=== PATIENT | female | born 1935 | race Caucasian/White ===

== ENCOUNTER → 2019-09-12 18:35 | Outpatient (CLI) | payer MEDICARE, MEDICAID, SELFPAY | PROVIDERS: Visit Provider Internal Medicine Adolescent Medicine | DX: Z20.828 Contact with and (suspected) exposure to other viral communicable diseases (principal) | CPT/HCPCS: 87275; 87276 ==

== ENCOUNTER → 2020-10-19 12:03 | Outpatient (CLI) | payer MEDICARE, MEDICAID, SELFPAY ==
[2020-10-19 13:50] LABS: Basophils % 0.2 % (0.1-2.0); Eosinophils # 0.2 K/mm3 (0.0-0.4); Eosinophils % 1.4 % (0.1-12.0); Hematocrit 28.6 % (37.0-47.0); Hemoglobin 9.4 g/dL (12.2-16.2); Lymphocytes # 0.8 K/mm3 (0.7-4.5); Lymphocytes % 5.3 % (10-50); Mean Corpuscular HGB Conc 32.9 g/dL (31.8-35.4); Mean Corpuscular Hemoglobin 28.9 pg (27.0-31.2); Mean Corpuscular Volume 87.8 fl (81-99); Mean Platelet Volume 8.9 fl (7.4-10.4); Monocytes # 0.6 K/mm3 (0.1-1.0); Monocytes % 4.4 % (1.7-9.3); Neutrophils # 12.6 K/mm3 (1.8-7.8); Neutrophils % 88.7 % (37.0-80.0); Platelet Count 242 K/mm3 (142-424); Red Blood Count 3.26 M/mm3 (4.20-5.40); Red Cell Distribution Width 15.9 % (11.5-17.5); White Blood Count 14.2 K/mm3 (4.8-10.8)
[2020-10-19 13:53] LABS: MANUAL DIFFERENTIAL MANUAL DIFFERENTIAL (MANUAL DIFF)
[2020-10-19 14:14] LABS: Lymphocytes % 6 % (10-50); Monocytes % 4 % (2-9); Neutrophils % 90 % (42-76); Platelet Estimate Normal; RBC Morphology Normal; Total Cells Counted 100
== END ==
PROVIDERS: Visit Provider Nurse Practitioner Family
DX: R06.02 Shortness of breath (principal); R05 Cough
CPT/HCPCS: 85007; 85025

== ENCOUNTER 2020-10-28 02:19 | Observation (INO) | payer MEDICARE, MEDICAID, SELFPAY ==
[2020-10-28] VITALS (14 sets, daily range): BP systolic 107–142; BP diastolic 50–87; PULSE 62–110; RESP 16–22; TEMP 36.4–36.9; O2SAT 84–100; BMI 24.7; BMI 23.3; BMI 20.5
[2020-10-28 02:28] LABS: ABG Base Excess 0.2 mmol/L (-2.4-2.3); ABG HCO3 24.7 mmhg (22.0-26.0); ABG Oxygen Saturation 96 % (90-100); ABG PCO2 39.2 mmhg (35.0-45.0); ABG PH 7.42 mmol/L (7.35-7.45); ABG TCO2 25.9 mmhg (23-27)
--- NOTE | 2020-10-28 02:30 | ECG_ITS ---
APPROVED REPORT Exam: Resting ECG HR:99 bpm ECG Measurements Heart Rate 99 AXES TN 160 P 42 QRSd 108 QRS 144 QT 402 T 24 QTc 515 Conclusion Sinus rhythm with occasional premature ventricular complexes Right bundle branch block ST elevation, consider inferior injury or acute infarct ACUTE MS Consider right ventricular involvement in acute inferior infarct Abnormal ECG Electronically signed by : Chilango Crews, 10/29/2020 17:36:26
[2020-10-28 02:32] LABS: Allen's Test Acceptable; Oxygen 2L %; Source Right Radial
--- NOTE | 2020-10-28 02:32 | CT_ITS ---
PROCEDURE: CT ANGIO CHEST CLINCIAL INDICATION: SOA Shortness of breath, respiratory distress COMPARISON: No exams were available for comparison TECHNIQUE: IV Contrast: 70ML Isovue 370 Axial images obtained with sagittal and coronal reformats. All CT scans at the facility use one or more dose reduction, viz: automated exposure control, ma/kV adjustment per patient size (including targeted exams where dose is matched to indication, i.e. head), or iterative reconstruction technique. FINDINGS: HEART AND MEDIASTINAL STRUCTURES: No evidence of aortic aneurysm or dissection. Aortic valve calcifications are. Mitral valve annular calcifications are also noted. No obvious pulmonary embolus. LUNGS AND PLEURAL SPACES: There is mild diffuse ground-glass attenuation in the upper lobes. Motion artifact obscures fine detail. Interstitial edema. Small bilateral pleural effusions right greater than left with basilar atelectasis BONY STRUCTURES: Degenerative changes of the spine UPPER ABDOMEN: Moderate amount of colonic feces ADDITIONAL FINDINGS: No other significant abnormalities. IMPRESSION: 1. No definite pulmonary embolus. No evidence of aortic aneurysm. 2. Pulmonary edema with bilateral pleural effusions and cardiomegaly consistent with CHF. Bibasilar atelectasis is noted Dictated by: Christian Heard MD 10/28/2020 07:39 Christian Heard MD in [facility] 10/28/2020 07:39
--- NOTE | 2020-10-28 02:32 | XR_ITS ---
PROCEDURE: XR CHEST AP CLINICAL HISTORY: SOA COMPARISON: No exams were available for comparison FINDINGS: Cardiomegaly with pulmonary venous congestion. Faint opacification in the right upper and right lower lobe which may be due to edema or pneumonia. Small bilateral pleural effusions are present better demonstrated on the CT scan. Left hemidiaphragm is elevated. IMPRESSION: CHF with patchy airspace disease in the right upper and right lower lobe which may be due to pulmonary edema or pneumonia with small bilateral effusions Dictated by: Christian Heard MD 10/28/2020 07:40 Christian Heard MD in [facility] 10/28/2020 07:40
[2020-10-28 02:43] LABS: Basophils # 0.1 K/mm3 (0-0.2); Basophils % 0.3 % (0.1-2.0); Eosinophils # 0.4 K/mm3 (0.0-0.4); Eosinophils % 2.8 % (0.1-12.0); Hematocrit 34.5 % (37.0-47.0); Hemoglobin 10.4 g/dL (12.2-16.2); Lymphocytes # 1.9 K/mm3 (0.7-4.5); Lymphocytes % 12.3 % (10-50); Mean Corpuscular HGB Conc 30.1 g/dL (31.8-35.4); Mean Corpuscular Hemoglobin 27.6 pg (27.0-31.2); Mean Corpuscular Volume 91.8 fl (81-99); Mean Platelet Volume 8.2 fl (7.4-10.4); Monocytes # 0.5 K/mm3 (0.1-1.0); Monocytes % 2.9 % (1.7-9.3); Neutrophils # 12.4 K/mm3 (1.8-7.8); Neutrophils % 81.7 % (37.0-80.0); Platelet Count 426 K/mm3 (142-424); Red Blood Count 3.76 M/mm3 (4.20-5.40); White Blood Count 15.2 K/mm3 (4.8-10.8)
[2020-10-28 02:45] LABS: Alanine Aminotransferase 13 U/L (12-78); Albumin Level 3.6 g/dl (3.5-5.0); Alkaline Phosphatase 71 U/L (38-126); Anion Gap 12.2 mEq/L (5-15); Aspartate Amino Transferase 25 U/L (14-36); Bilirubin,Total 0.2 mg/dl (0.2-1.3); Blood Urea Nitrogen 24 mg/dl (7-17); Calcium 9.4 mg/dl (8.4-10.2); Carbon Dioxide 27 mmol/L (22.0-30.0); Chloride 109 mmol/L (98-107); Creatinine Clearance Estimated 41 mL/min (50-200); Estimated Glomerular Filt Rate 68 ml/min (>60); GFR (African American) 82 ML/MIN (>60); Globulin 3.6 g/dL (1.3-3.2); Glucose 146 mg/dl (74-100); Potassium 3.2 mmoL/L (3.5-5.1); Sodium 145 mmol/L (136-145); Total Protein,Serum 7.2 g/dl (6.3-8.2)
[2020-10-28 02:49] LABS: MANUAL DIFFERENTIAL MANUAL DIFFERENTIAL (MANUAL DIFF)
[2020-10-28 02:50] LABS: C-Reactive Protein 22.2 mg/L (0-4)
[2020-10-28 02:53] LABS: NT Pro Brain Natriuretic Pep. 4000 pg/mL (0-450)
[2020-10-28 02:59] LABS: Troponin I 0.03 ng/ml (0.00-0.034)
[2020-10-28 03:03] LABS: Adenovirus,PCR Not Detected (NotDetected); Bordetella Pertussis Not Detected (NotDetected); Chlamydophila Pneumoniae, PCR Not Detected (NotDetected); Coronavirus 19, PCR Not Detected (NotDetected); Coronavirus 229E Not Detected (NotDetected); Coronavirus NL63 Not Detected (NotDetected); Coronavirus OC43 Not Detected (NotDetected); Coronovirus HKU1,PCR Not Detected (NotDetected); Human Metapneumovirus Not Detected (NotDetected); Influenza A, PCR Not Detected (NotDetected); Influenza AH1, 2009 Not Detected (NotDetected); Influenza AH1, PCR Not Detected (NotDetected); Influenza AH3,PCR Not Detected (NotDetected); Influenza B, PCR Not Detected (NotDetected); Mycoplasma Pneumoniae, PCR Not Detected (NotDetected); Parainfluenza 1, PCR Not Detected (NotDetected); Parainfluenza 2, PCR Not Detected (NotDetected); Parainfluenza 3, PCR Not Detected (NotDetected); Parainfluenza 4, PCR Not Detected (NotDetected); Respiratory Syncytial Virus Not Detected (NotDetected); Rhinovirus/Enterovirus Not Detected (NotDetected)
[2020-10-28 03:04] LABS: Procalcitonin 0.075 ng/mL (0.0-2.0)
[2020-10-28 03:17] LABS: Microscopic, Urine URINE MICROSCOPIC (MICROSCOPIC)
[2020-10-28 03:20] LABS: Appearance,Urine CLEAR (Clear); Bilirubin,Urine Negative (Negative); Blood, Urine Negative (Negative); Color,Urine YELLOW (Yellow); Glucose,Urine (UA) Negative (Negative); Ketones,Urine Negative (Negative); Leukocyte Esterase,Urine Negative (Negative); Nitrate,Urine Negative (Negative); Protein,Urine TRACE (Negative); Specific Gravity, Urine 1.025 (1.005-1.030)
[2020-10-28 03:25] LABS: Lactic Acid 1.4 mmol/L (0.7-2.1)
[2020-10-28 03:28] LABS: Bacteria,Urine 1+ /lpf; Calcium Oxalate Crystals,Urine 1+ /lpf
[2020-10-28 03:50] LABS: Eosinophils % 1 % (0-3); Lymphocytes % 25 % (10-50); Monocytes % 1 % (2-9); Neutrophils % 73 % (42-76); Platelet Estimate Normal; Stomatocytes 1+; Total Cells Counted 100
[2020-10-28 03:51] LABS: Erythrocyte Sedimentation Rate > 140 mm/hr (0-30)
--- NOTE | 2020-10-28 04:10 | PC.NURSE ---
Dr. Theodore on phone with MIROSLAVAAD
--- NOTE | 2020-10-28 04:11 | PC.NURSE ---
Dr Theodore speaking with [facility] regarding Chest CT
--- NOTE | 2020-10-28 04:15 | HMH.EDSOB ---
ED Disposition Clinical Impression: RBBB (right bundle branch block with left anterior fascicular block), Hypothyroidism (acquired) Congestive heart failure Qualifiers: Heart failure type: unspecified Heart failure chronicity: acute on chronic Qualified Code(s): I50.9 - Heart failure, unspecified Pulmonary embolism Qualifiers: Pulmonary embolism type: unspecified Chronicity: acute Acute cor pulmonale presence: without acute cor pulmonale Qualified Code(s): I26.99 - Other pulmonary embolism without acute cor pulmonale Anemia Qualifiers: Anemia type: unspecified type Qualified Code(s): D64.9 - Anemia, unspecified Disposition: Admitted As Inpatient Condition on Discharge: Serious Referrals: Chilango Crews MD [Primary Care Provider] - - Critical Care Critical Care Time: No Attestation: On , the high probability of a clinically significant, sudden or life threatening deterioration of the following system(s) required my full and direct attention, intervention and personal management. The time I documented below is in addition to time spent performing reported procedures but includes the following listed in this critical care notation. Medical Decision Making - Medical Records Medical records reviewed: Yes: I reviewed the patient's medical records. - Junior Inquiry Pt receiving controlled substance: No Vital Signs: 10/28/20 02:19 10/28/20 02:20 10/28/20 02:37 Temperature 98.4 F Temperature Source Oral Pulse Rate 110 H Pulse Rate [Right] 102 H Respiratory Rate 21 20 Blood Pressure 107/66 L Blood Pressure [Right Arm] 142/87 H Blood Pressure Mean 81 Blood Pressure Mean [Right Arm] 105 Blood Pressure Source [Right Arm] Automatic Cuff 02 Sat by Pulse Oximetry 84 L 94 L 98 Oxygen Delivery Method Room Air Nasal Cannula Nasal Cannula Oxygen Flow Rate (LPM) 2 2 10/28/20 03:01 10/28/20 04:02 Temperature Temperature Source Pulse Rate 102 H 102 H Pulse Rate [Right] Respiratory Rate 18 22 Blood Pressure 126/80 129/85 Blood Pressure [Right Arm] Blood Pressure Mean 90 99 Blood Pressure Mean [Right Arm] Blood Pressure Source [Right Arm] 02 Sat by Pulse Oximetry 100 100 Oxygen Delivery Method Nasal Cannula Nasal Cannula Oxygen Flow Rate (LPM) 2 2 - Lab Data Lab results reviewed: Yes: I reviewed the patient's lab results. Lab Results 10/28/20 02:15: WBC 15.2 H, RBC 3.76 L, Hgb 10.4 L, Hct 34.5 L, MCV 91.8, MCH 27.6, MCHC 30.1 L, RDW 16.0, Plt Count 426 H, MPV 8.2, Neut % (Auto) 81.7 H, Lymph % (Auto) 12.3, [place] % (Auto) 2.9, Eos % (Auto) 2.8, Baso % (Auto) 0.3, Neut # (Auto) 12.4 H, Lymph # (Auto) 1.9, [place] # (Auto) 0.5, Eos # (Auto) 0.4, Baso # (Auto) 0.1, Total Counted 100, Neutrophils % (Manual) 73, Lymphocytes % (Manual) 25, Monocytes % (Manual) 1 L, Eosinophils % (Manual) 1, Platelet Estimate Normal, Stomatocytes 1+, ESR > 140 H 10/28/20 02:15: Sodium 145, Potassium 3.2 L, Chloride 109 H, Carbon Dioxide 27, Anion Gap 12.2, BUN 24 H, Creatinine 0.80, Estimated Creat Clear 41, Estimated GFR 68, Est GFR ( Amer) 82, Glucose 146 H, Calcium 9.4, Total Bilirubin 0.2, AST 25, ALT 13, Alkaline Phosphatase 71, Troponin I 0.03, C-Reactive Protein 22.2 H, Total Protein 7.2, Albumin 3.6, Globulin 3.6 H, Albumin/Globulin Ratio 1.0 L, Procalcitonin 0.075 10/28/20 02:15: NT-Pro-B Natriuret Pep 4000 H 10/28/20 02:15: Total Valproic Acid 26.0 L 10/28/20 02:24: Specimen Source Right radial, O2 % 2l, ABG pH 7.42, ABG pCO2 39.2, ABG pO2 80.0, ABG HCO3 24.7, ABG Total CO2 25.9, ABG O2 Saturation 96, ABG Base Excess 0.2, Christian Test Acceptable 10/28/20 02:50: Chlamy pneumoniae PCR Not detected, Adenovirus (PCR) Not detected, B. pertussis DNA (PCR) Not detected, Coronavirus OC43 (PCR) Not detected, Coronavirus HKU1 (PCR) Not detected, Coronavirus 229E (PCR) Not detected, SARS-CoV-2 (PCR) Not detected, Coronavirus NL63 (PCR) Not detected, Human Metapneumovir PCR Not detected, Influenza A (H1) PCR Not detec
--- NOTE | 2020-10-28 05:53 | PC.NURSE ---
Pharmacy paged but no return call, Dr Theodore ordered 1mg/kg of lovenox to give now.
--- NOTE | 2020-10-28 06:37 | PC.NURSE ---
PT ARRIVED TO FLOOR VIA STRETCHER FROM ED W/STAFF AT 0636.
[2020-10-28 06:42] LABS: Troponin I 0.05 ng/ml (0.00-0.034)
--- NOTE | 2020-10-28 07:21 | HMH.PHAVTE ---
[facility] Pharmacy VTE Monitoring - Patient Demographics Admission date: 10/28/20 Report Date: 10/28/20 Time: 07:21 Allergies/Adverse Reactions: Patient Allergies No Known Allergies Allergy (Verified 10/28/20 02:27) Height: 1.65 m Weight: 55.99 kg Patient Problems: Current Active Problems Congestive heart failure (Acute) Pulmonary embolism (Acute) RBBB (right bundle branch block with left anterior fascicular block) (Acute) Anemia (Acute) Hypothyroidism (acquired) (Acute) - VTE Risk Labs: VTE Related Lab Results Hgb 10.4 g/dL (12.2-16.2) L 10/28/20 02:15 Hct 34.5 % (37.0-47.0) L 10/28/20 02:15 Plt Count 426 K/mm3 (142-424) H 10/28/20 02:15 BUN 24 mg/dl (7-17) H 10/28/20 02:15 Creatinine 0.80 mg/dl (0.52-1.04) 10/28/20 02:15 Estimated Creat Clear 41 mL/min (50-200) 10/28/20 02:15 - Prophylaxis VTE Prophylaxis Ordered?: Yes Types of VTE Prophylaxis: TEDS Knee High Location of Applied Device: Bilateral Lower Extremeties
--- NOTE | 2020-10-28 08:00 | CA_ITS ---
APPROVED REPORT EXAM: Comprehensive 2D, Doppler, and color-flow Echocardiogram Registered Veterinary Technician: Mikayla Greene CRT Ht: 5 ft 5 in Wt: 140lbs BSA: 1.70 BP: 129/85 mmHg Indications: Congestive Heart Failure, Shortness of Breath, DNR, RBBB 2D Dimensions LVOT 1.83 cm (M/F) 1.5-2.5 LA Volume 71.80 mL LA Volume Index 42.20 mL/m2 (M/F) 16-34 M-Mode Dimensions RVDd 2.17 cm (0.9-2.6) LA Diam 4.98 cm (1.9-4.0) LVDd 5.55 cm (3.5-5.7) Ao Diam 3.19 cm (2.0-3.7) LVDs 4.13 cm (3.5-5.7) IVSd 1.74 cm (0.6-1.1) PWd 0.89 cm (0.6-1.1) EF (Teich) 49.80% FS 25.60% EDV (Teich) 150.50 mL TAPSE 2.69 (<1.7) ESV (Teich) 75.50 mL LV Diastology E Decel Time 417.00 (160-240 msec) E/A Ratio 1.51 MED E' 6.40 (< 7 cm/sec) MED A' 7.90 cm/s E'/MED E' Ratio 25.73 (>14) LAT E' 9.60 (<10 cm/sec) LAT A' 7.60 cm/s E/LAT E' Ratio 17.16 (>14) Aortic Valve LVOT Max 154.00 (70-110 cm/s) LVOT VTI 29.60 cm AoV Peak Michael. 458.00 (50-130 cm/s) AI PHT 559.00 ms AO Peak GR. 84.00 mmHg AO Mean GR. 53.00 (<5 mmHg) AO VTI 91.85 (18-25 cm) RED (VTI) 0.85 (2.5-4.5 cm2) Mitral Valve MV E Max Michael. 165.00 (40-130 cm/s) MV A Velocity 109.00 (40-130 cm/s) E/A Ratio 1.51 MV Decel. Time 417.00 (160-240 ms) MV Mean Gr. 5.40 (<2mmHg) MV PHT 122.00 ms Pulmonary Valve PV Peak Velocity 130.00 (50-150 cm/s) Tricuspid Valve TR P. Velocity 220.00 cm/s RAP Estimate 10.00 mmHg RVSP 29.40 mmHg Left Ventricle Left atrium is mildly enlarged, left ventricle is normal size, mild concentric left ventricular hypertrophy, visually estimated ejection fraction 50% with no obvious regional wall motion abnormality, endocardial surfaces are poorly visualized. Grade 1 diastolic dysfunction seen with tissue Doppler evidence of raise left atrial pressure. Right Ventricle Right atrium and right ventricle are normal size and contractility. Aortic Valve Aortic valve is thickened and calcified with severe restriction in the leaflet mobility, the mean gradient across valve is 51 mmHg valve area calculated 0.8 cm??? represents severe aortic stenosis, there is no significant aortic insufficiency. Mitral Valve Mitral valve leaflets are calcified, there is mitral annular calcification, which extends in both anterior posterior mitral leaflet, with mild restriction in the leaflet mobility, the mean gradient across valve is 4.8 cm??? this likely represents mild calcific mitral stenosis, there is mild mitral regurgitation. Tricuspid Valve Tricuspid valve leaflets are minimally thickened, there is mild tricuspid regurgitation, tricuspid regurgitation jet velocity is inadequate for calculation of the right ventricular systolic pressure. Pulmonic Valve Lynn valve is poorly visualized. Great Vessels Aortic root is normal size. Pericardium No significant pericardial effusion noted. Conclusion 1. Mildly enlarged left atrium, normal left ventricular size, mild concentric left ventricular hypertrophy, visually estimated ejection fraction 50% with no regional wall motion abnormality, grade 1 diastolic dysfunction seen with tissue Doppler evidence of raise left atrial pressure. 2. Thickened and calcified aortic valve with severe aortic stenosis, valve area is 0.8 cm???. 3. Mild calcific mitral stenosis. 4. Mild mitral and tricuspid regurgitation. 5. No significant pericardial effusion noted. Electronically signed by : Luca Ross, 10/28/2020 19:38:18
--- NOTE | 2020-10-28 08:32 | HMH.CNCARD ---
History of Present Illness Consult date: 10/28/20 Requesting physician: Alexis Pineda Consult reason: congestive heart failure Chief complaint: SOA, Hypoxemia Additional Medical History:: 1. Dementia 2. Hypertension 3. Cardiac murmur with suspected aortic stenosis 4. Hypothyroidism 5. Schizo affective disorder History of present illness: 85-year-old white female resident of extended care facility sent to the hospital ER for evaluation of shortness of breath with hypoxemia which improved with nebulizer treatment. Patient denies any chest pain or shortness of breath at this time but is a poor historian. She is not oriented to time or place only to person. Initial concern was for pulmonary embolus but CT of the chest showed no definite area of pulmonary embolus identified. She is noted to have bilateral pleural effusions consistent with congestive heart failure along with a BNP of 4000. Echocardiogram has been performed with results pending at this time. Initial troponin normal with second troponin noted to be mildly elevated. EKG on admission is sinus rhythm at 99 bpm with right bundle branch block noted. [facility] History Medical History: Reports:: Congestive Heart Failure, Heart Murmur, Hypertension Denies:: Diabetes Mellitus Type 1, Diabetes Mellitus Type 2 *Have you ever received a pneumonia vaccine?: Yes *Have you received a flu vaccine this season?: Yes Other Medical History: Reports: Hypothyroidism - *Social History Smoking Status: Never smoker Alcohol Intake: never *Occupational Status:: disabled Housing: residential Household Members: caregiver *Travel in the last 8 weeks: None Family Hx:: Unable to obtain Meds Home Medications Medication Instructions Recorded Confirmed Type Acetaminophen 1,000 mg PO Q6H PRN 10/28/20 10/28/20 History Cetirizine HCl [Zyrtec] 10 mg PO HS 10/28/20 10/28/20 History Cholecalciferol (Vitamin D3) 50 mcg PO DAILY 10/28/20 10/28/20 History [Vitamin D3] Cyanocobalamin (Vitamin B-12) 1,000 mcg PO DAILY 10/28/20 10/28/20 History [B-12] Divalproex Sodium [Depakote 125 mg PO DAILY 10/28/20 10/28/20 History Sprinkle 125mg capsule] Divalproex Sodium [Depakote 250 mg PO HS 10/28/20 10/28/20 History Sprinkle 125mg capsule] Docusate Sodium [Docusate Sodium 200 mg PO DAILY 10/28/20 10/28/20 History 100mg Cap] Levothyroxine Sodium 88 mcg PO DAILY 10/28/20 10/28/20 History [Levothyroxine 88mcg (0.088mg) Tab] Menthol/Zinc Oxide [Remedy 1 applicatio TOPICAL BID 10/28/20 10/28/20 History Calazime Protect Paste] Mirtazapine 7.5 mg PO HS 10/28/20 10/28/20 History Multivit-Min/Iron Fum/Folic AC 1 each PO DAILY 10/28/20 10/28/20 History [Fluax-Uwtctqk-Urmwpegn Tablet] Potassium Chloride 10 meq PO DAILY 10/28/20 10/28/20 History Sertraline HCl [Zoloft 100mg 100 mg PO DAILY 10/28/20 10/28/20 History tablet] hydrOXYzine HCL [Hydroxyzine HCl] 10 mg PO Q12H PRN 10/28/20 10/28/20 History lisinopriL [Lisinopril] 10 mg PO DAILY 10/28/20 10/28/20 History risperiDONE [Risperdal 0.25mg 0.25 mg PO HS 10/28/20 10/28/20 History Tablet] Allergies Allergy/AdvReac Type Severity Reaction Status Date / Time No Known Allergies Allergy Verified 10/28/20 02:27 Exam Vital signs and Labs for Last 24 Hours: Temp Pulse Resp BP Pulse Ox 98.0 F 80 16 123/77 99 10/28/20 06:37 10/28/20 06:51 10/28/20 06:37 10/28/20 06:37 10/28/20 06:37 Laboratory Results - last 24 hr 10/28/20 02:15: WBC 15.2 H, RBC 3.76 L, Hgb 10.4 L, Hct 34.5 L, MCV 91.8, MCH 27.6, MCHC 30.1 L, RDW 16.0, Plt Count 426 H, MPV 8.2, Neut % (Auto) 81.7 H, Lymph % (Auto) 12.3, [place] % (Auto) 2.9, Eos % (Auto) 2.8, Baso % (Auto) 0.3, Neut # (Auto) 12.4 H, Lymph # (Auto) 1.9, [place] # (Auto) 0.5, Eos # (Auto) 0.4, Baso # (Auto) 0.1, Total Counted 100, Neutrophils % (Manual) 73, Lymphocytes % (Manual) 25, Monocytes % (Manual) 1 L, Eosinophils % (Manual) 1, Platelet Estimate Normal, Stomatocytes 1+, ESR >
--- NOTE | 2020-10-28 08:57 | HMH.HP ---
*Admission Date: 10/28/20 *Chief complaint: shortness of breath *History of present illness: Ms. Lees is a very pleasant 85-year-old female who resides at [facility]. She has a history of dementia, schizoaffective disorder, hypertension, hypothyroidism. She was admitted for worsening shortness of breath. Review of outside charts shows that she had an x-ray on the and has had new oxygen requirement over the past week. Was sent to the ER for further assessment. Noted to have severely elevated BNP, slight bump in troponin, some right heart strain, and findings on EKG consistent with NSTEMI. Additionally found to have some effusions on chest imaging but no josephine PE noted. Given a dose of therapeutic Lovenox overnight and admitted for further medical management. On assessment this morning she has no complaints. Is very pleasant but unable to answer questions appropriately. Answers are garbled and tangential. Stable on 2 L nasal cannula oxygen. [facility] History Medical History: Reports:: Congestive Heart Failure, Heart Murmur, Hypertension Denies:: Diabetes Mellitus Type 1, Diabetes Mellitus Type 2 *Have you ever received a pneumonia vaccine?: Yes *Have you received a flu vaccine this season?: Yes Other Medical History: Reports: Hypothyroidism - *Social History Smoking Status: Never smoker Alcohol Intake: never *Occupational Status:: disabled Housing: [facility] Household Members: caregiver *Travel in the last 8 weeks: None Family Hx:: Unable to obtain Review of Systems - Review of Systems Review of systems:: pertinent systems reviewed and negative unless documented below (Difficult to obtain.) - *Neurologic Denies headache(s) Meds Home Medications Medication Instructions Recorded Confirmed Type Cetirizine HCl [Zyrtec] 10 mg PO HS 10/28/20 10/28/20 History Cholecalciferol (Vitamin D3) 2,000 unit MC DAILY 10/28/20 History [Vitamin D3] Cyanocobalamin (Vitamin B-12) 1,000 mcg PO DAILY 10/28/20 10/28/20 History [B-12] Divalproex Sodium [Depakote 125 mg PO DAILY 10/28/20 10/28/20 History Sprinkle 125mg capsule] Divalproex Sodium [Depakote 250 mg PO HS 10/28/20 10/28/20 History Sprinkle 125mg capsule] Docusate Sodium [Docusate Sodium 200 mg PO DAILY 10/28/20 10/28/20 History 100mg Cap] Levothyroxine Sodium 88 mcg PO DAILY 10/28/20 10/28/20 History [Levothyroxine 88mcg (0.088mg) Tab] Mirtazapine 7.5 mg PO HS 10/28/20 10/28/20 History Multivit-Min/Iron Fum/Folic AC 1 each PO DAILY 10/28/20 10/28/20 History [Bfngc-Nbcdnqb-Clapkzhx Tablet] Potassium Chloride 10 meq PO DAILY 10/28/20 10/28/20 History Sertraline HCl [Zoloft 100mg 100 mg PO DAILY 10/28/20 10/28/20 History tablet] lisinopriL [Lisinopril] 10 mg PO DAILY 10/28/20 10/28/20 History risperiDONE [Risperdal 0.25mg 0.25 mg PO HS 10/28/20 10/28/20 History Tablet] Allergies Allergy/AdvReac Type Severity Reaction Status Date / Time No Known Allergies Allergy Verified 10/28/20 02:27 Exam Vital signs and Labs for Last 24 Hours: Temp Pulse Resp BP Pulse Ox 97.6 F 78 22 133/61 93 L 10/28/20 08:00 10/28/20 08:00 10/28/20 08:00 10/28/20 08:00 10/28/20 08:00 Laboratory Results - last 24 hr 10/28/20 02:15: WBC 15.2 H, RBC 3.76 L, Hgb 10.4 L, Hct 34.5 L, MCV 91.8, MCH 27.6, MCHC 30.1 L, RDW 16.0, Plt Count 426 H, MPV 8.2, Neut % (Auto) 81.7 H, Lymph % (Auto) 12.3, [place] % (Auto) 2.9, Eos % (Auto) 2.8, Baso % (Auto) 0.3, Neut # (Auto) 12.4 H, Lymph # (Auto) 1.9, [place] # (Auto) 0.5, Eos # (Auto) 0.4, Baso # (Auto) 0.1, Total Counted 100, Neutrophils % (Manual) 73, Lymphocytes % (Manual) 25, Monocytes % (Manual) 1 L, Eosinophils % (Manual) 1, Platelet Estimate Normal, Stomatocytes 1+, ESR > 140 H 10/28/20 02:15: Sodium 145, Potassium 3.2 L, Chloride 109 H, Carbon Dioxide 27, Anion Gap 12.2, BUN 24 H, Creatinine 0.80, Estimated Creat Clear 41, Estimated GFR 68, Est GFR ( Amer) 82, Glucose 146 H, Calcium 9.4, Total
--- NOTE | 2020-10-28 09:12 | HMH.PHAINT ---
MEDICATION RECONCILIATION COMPLETED USING EXTERNAL FILL HISTORY AND DETENTION MAR
[2020-10-28 09:17] LABS: Troponin I 0.05 ng/ml (0.00-0.034)
--- NOTE | 2020-10-28 09:44 | PC.NURSE ---
Addendum entered by Melina Phelps RN 10/28/20 14:58: Pt's Legal Surrogate Samantha Searsk phone number- [phone] Addendum entered by Melina Phelps RN 10/28/20 10:54: MD Pineda and MIKE Kwan made aware of code status change Original Note: Per Samantha Mendoza (pt's legal surrogate)- pt is a FULL CODE and not a DNR. Pt was picked up as a [place] the state in April and her previous DNR order was changed to FULL CODE status then. Will update pt's chart at this time
--- NOTE | 2020-10-28 11:40 | SW/DCPLANNER ---
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 WILL KEEP FACILITY INFORMED WHEN PATIENT IS READY FOR DISPOSITION..
--- NOTE | 2020-10-28 16:30 | PC.NURSE ---
Pt has remained pleasantly confused this shift. Pt is oriented to name and only. Pt has been a q2h turn this shift. Pt has remained on 2L NC w/ o2 sats >90%. Lung sounds CTA. Weinberg cath remains patent and is draining cloudy, light yellow urine per gravity. Pt's output has been >1700 mL's this shift. No other acute changes or complaints at this time.
[2020-10-29] VITALS: PULSE 60
[2020-10-29 03:53] VITALS: BP 123/61; PULSE 70; RESP 16; TEMP 36.5; O2SAT 100
[2020-10-29 04:00] VITALS: PULSE 60
[2020-10-29 05:00] VITALS: BMI 20.2
--- NOTE | 2020-10-29 06:53 | PC.NURSE ---
pt slept throughout the night. campos draining clear yellow urine. 2LNC. telemetry. no complaints. turned q2h. pt is confused, alert to self but will follow commands. call light in reach. will continue to monitor.
[2020-10-29 07:32] LABS: Chloride 105 mmol/L (98-107); Sodium 143 mmol/L (136-145)
[2020-10-29 07:34] LABS: Potassium 2.8 mmoL/L (3.5-5.1)
[2020-10-29 07:35] LABS: Anion Gap 10.8 mEq/L (5-15); Blood Urea Nitrogen 25 mg/dl (7-17); Carbon Dioxide 30 mmol/L (22.0-30.0); Creatinine Clearance Estimated 36 mL/min (50-200); Estimated Glomerular Filt Rate 60 ml/min (>60); GFR (African American) 72 ML/MIN (>60); Glucose 92 mg/dl (74-100)
[2020-10-29 07:36] LABS: Calcium 8.8 mg/dl (8.4-10.2); Magnesium 2.1 mg/dl (1.6-2.3)
[2020-10-29 07:37] VITALS: BP 115/62; PULSE 66; RESP 16; TEMP 37.3; O2SAT 95
[2020-10-29 07:57] LABS: Basophils % 0.3 % (0.1-2.0); Eosinophils # 0.1 K/mm3 (0.0-0.4); Eosinophils % 0.8 % (0.1-12.0); Hematocrit 34.4 % (37.0-47.0); Hemoglobin 10.8 g/dL (12.2-16.2); Lymphocytes # 1.2 K/mm3 (0.7-4.5); Lymphocytes % 11.3 % (10-50); Mean Corpuscular HGB Conc 31.3 g/dL (31.8-35.4); Mean Corpuscular Hemoglobin 28.1 pg (27.0-31.2); Mean Corpuscular Volume 89.9 fl (81-99); Mean Platelet Volume 9.1 fl (7.4-10.4); Monocytes # 0.7 K/mm3 (0.1-1.0); Monocytes % 6.7 % (1.7-9.3); Neutrophils # 8.2 K/mm3 (1.8-7.8); Neutrophils % 80.8 % (37.0-80.0); Platelet Count 296 K/mm3 (142-424); Red Blood Count 3.82 M/mm3 (4.20-5.40); Red Cell Distribution Width 15.8 % (11.5-17.5); White Blood Count 10.2 K/mm3 (4.8-10.8)
[2020-10-29 08:00] VITALS: PULSE 66; O2SAT 95
--- NOTE | 2020-10-29 08:24 | HMH.DCSUM ---
General - General Admission date:: 10/28/20 Discharge date: 10/29/20 HPI HPI: Ms. Lees is a very pleasant 85-year-old female who resides at [facility]. She has a history of dementia, schizoaffective disorder, hypertension, hypothyroidism. She was admitted for worsening shortness of breath. Review of outside charts shows that she had an x-ray on the and has had new oxygen requirement over the past week. Was sent to the ER for further assessment. Noted to have severely elevated BNP, slight bump in troponin, some right heart strain, and findings on EKG consistent with NSTEMI. Additionally found to have some effusions on chest imaging but no josephine PE noted. Given a dose of therapeutic Lovenox overnight and admitted for further medical management. On assessment this morning she has no complaints. Is very pleasant but unable to answer questions appropriately. Answers are garbled and tangential. Stable on 2 L nasal cannula oxygen. Hospital Course Hospital Course: Patient was admitted, diuresed with excellent improvement in her dyspnea and reduced/eliminated oxygen requirement. Cardiology was consulted-they felt that edema/CHF symptoms were because of critical/terminal aortic stenosis, and recommended intermittent Lasix as needed along with palliative care as given patient's advanced age and multiple comorbidities would not survive surgical procedure and would not survive cardiopulmonary resuscitation. Unfortunately the [place] and although family had previously made her DNR status she is currently a full code at the custodial. This morning patient is comfortable, pleasant, talkative, significantly demented. Plan will be to transfer back to custodial today with daily Lasix. We will institute daily potassium therapy given her low potassium today, we will check potassium in 48 hours. We will initiate proceedings to change CODE STATUS to DNR. Patient has a terminal condition, no good treatment options to ameliorate this and any intervention would cause pain and significant emotional and physical trauma to the patient. Please note patient will need basic metabolic panel on 10/31/2020. Objective Vital signs: Temp Pulse Resp BP Pulse Ox 99.1 F 66 16 115/62 95 10/29/20 07:37 10/29/20 07:37 10/29/20 07:37 10/29/20 07:37 10/29/20 07:37 no acute distress, thin, chronically ill appearing - *Routine HEENT Exam Head: Present: normocephalic Eye: Present: EOMI, PERRL ENT: Present: mucous membranes moist - *Routine Neck Exam Present: supple - *Routine Respiratory Exam Present: CTA bilaterally - *Routine Cardiovascular Exam Present: RRR, murmur Comments: 3/6 systolic ejection murmur radiating to the carotids - *Routine Abdominal Exam Present: soft, normoactive bowel sounds. Absent: tenderness - *Routine Extremities Exam Absent: cyanosis, clubbing, edema - *Routine Skin Exam Present: warm. Absent: rash - Detailed Eye Exam Eyelids: Bilateral normal inspection Results Labs on day of discharge: Labs from last 24 hours 10/29/20 10/29/20 10/28/20 06:55 06:00 08:45 WBC 10.2 D RBC 3.82 L Hgb 10.8 L Hct 34.4 L MCV 89.9 MCH 28.1 MCHC 31.3 L RDW 15.8 Plt Count 296 D MPV 9.1 Neut % (Auto) 80.8 H Lymph % (Auto) 11.3 [place] % (Auto) 6.7 Eos % (Auto) 0.8 Baso % (Auto) 0.3 Neut # (Auto) 8.2 H Lymph # (Auto) 1.2 [place] # (Auto) 0.7 Eos # (Auto) 0.1 Baso # (Auto) 0.0 Sodium 143 Potassium 2.8 L* Chloride 105 Carbon Dioxide 30 Anion Gap 10.8 BUN 25 H Creatinine 0.90 Estimated Creat Clear 36 Estimated GFR 60 Est GFR ( Amer) 72 Glucose 92 Calcium 8.8 Magnesium 2.1 Troponin I 0.05 H Preliminary micro results at discharge 10/28/20 02:50 Urine Culture - Preliminary Urine,Catheterized NO GROWTH AFTER 24 HOURS DS: Diagnosis
--- NOTE | 2020-10-29 09:01 | DIET.NUTRFU ---
Nutritional assessment/consult completed, pt with severe protein calorie malnutrition. PO intakes 25% on cardiac diet with TID fortified foods and TID liquid supplements, with fair acceptance. Pt denies any eating problems, states she drinks her magic cups at [facility]. Diet education for malnutrition and CHF provided to best of ability.
--- NOTE | 2020-10-29 10:47 | SW/DCPLANNER ---
SPOKE WITH JONATHAN AT [facility] TO INFORM HER THAT PATIENT WAS COMING BACK... I ASKED HER TO CALL HER GUARDIAN ABOUT HER DNR STATUS... SHE WAS A DNR WHEN HER DAUGHTER WAS HER POA NOT SURE WHY GUARDIAN PUT INTO PLACE... WILL SUBMIT [address]S [address] [facility] [address] RENE AND RUIZ TO SEND IN FOR REVIEW... PATIENT IS DISCHARGING BACK TO [facility] TODAY...
[2020-10-29 11:17] VITALS: BP 131/76; PULSE 78; RESP 16; TEMP 36.6; O2SAT 98
== END 2020-10-29 11:40 ==
LOC: ER 04:57 → 2ND 06:21
PROVIDERS: Admitting Provider Family Medicine; Emergency Provider Emergency Medicine; PCP Internal Medicine Adolescent Medicine; Visit Provider Internal Medicine Adolescent Medicine
DX: I45.2 Bifascicular block (principal); I35.0 Nonrheumatic aortic (valve) stenosis; E03.9 Hypothyroidism, unspecified; D64.9 Anemia, unspecified; I50.9 Heart failure, unspecified; E46 Unspecified protein-calorie malnutrition; Z68.20 Body mass index [BMI] 20.0-20.9, adult; Z79.899 Other long term (current) drug therapy
CPT/HCPCS: 71045; 71275; 80048; 80053; 80164; 81001; 82803; 83605; 83735; 83880; 84145; 84484; 85007; 85025; 85651; 86140; 87040; 87086; 87581; 87633; 87798; 93005; 93306; 96365; 96372; 96375; 99284; G0378; Q9967

== ENCOUNTER → 2021-02-23 20:05 | Outpatient (CLI) | payer MEDICARE, MEDICAID, SELFPAY ==
[2021-02-23 21:09] LABS: Basophils # 0.1 K/mm3 (0-0.2); Basophils % 0.3 % (0.1-2.0); Eosinophils % 0.1 % (0.1-12.0); Hematocrit 45.6 % (37.0-47.0); Hemoglobin 14.2 g/dL (12.2-16.2); Lymphocytes # 1.1 K/mm3 (0.7-4.5); Mean Corpuscular HGB Conc 31.2 g/dL (31.8-35.4); Mean Corpuscular Hemoglobin 27.5 pg (27.0-31.2); Mean Corpuscular Volume 88.3 fl (81-99); Monocytes # 0.8 K/mm3 (0.1-1.0); Monocytes % 4.1 % (1.7-9.3); Neutrophils # 16.7 K/mm3 (1.8-7.8); Neutrophils % 89.5 % (37.0-80.0); Platelet Count 321 K/mm3 (142-424); Red Blood Count 5.16 M/mm3 (4.20-5.40); Red Cell Distribution Width 17.2 % (11.5-17.5); White Blood Count 18.7 K/mm3 (4.8-10.8)
[2021-02-23 21:10] LABS: MANUAL DIFFERENTIAL MANUAL DIFFERENTIAL (MANUAL DIFF)
[2021-02-23 21:28] LABS: Anion Gap 27.6 mEq/L (5-15); Calcium 10.2 mg/dl (8.4-10.2); Carbon Dioxide 19 mmol/L (22.0-30.0); Chloride 120 mmol/L (98-107); Estimated Glomerular Filt Rate 12 ml/min (>60); GFR (African American) 15 ML/MIN (>60); Glucose 154 mg/dl (74-100); Potassium 4.6 mmoL/L (3.5-5.1)
[2021-02-23 22:03] LABS: Blood Urea Nitrogen 99 mg/dl (7-17); Sodium 162 mmol/L (136-145)
[2021-02-23 22:23] LABS: Hypochromasia 1+; Lymphocytes % 7 % (10-50); Monocytes % 8 % (2-9); Neutrophils % 85 % (42-76); Platelet Estimate Normal; Total Cells Counted 100
== END ==
PROVIDERS: PCP Internal Medicine Adolescent Medicine; Visit Provider Nurse Practitioner Family
DX: R53.1 Weakness (principal)
CPT/HCPCS: 80048; 85007; 85025

== ENCOUNTER → 2021-02-24 07:43 | Outpatient (CLI) | payer MEDICARE, MEDICAID, SELFPAY ==
[2021-02-24 07:49] LABS: Microscopic, Urine URINE MICROSCOPIC (MICROSCOPIC)
[2021-02-24 07:56] LABS: Appearance,Urine CLEAR (Clear); Bilirubin,Urine Negative (Negative); Blood, Urine 1+ (Negative); Color,Urine YELLOW (Yellow); Glucose,Urine (UA) TRACE (Negative); Ketones,Urine TRACE (Negative); Leukocyte Esterase,Urine Negative (Negative); Nitrate,Urine Negative (Negative); PH,Urine 5.5 (5.0-8.5); Protein,Urine 3+ (Negative); Specific Gravity, Urine >= 1.030 (1.005-1.030); Urobilinogen,Urine 0.2 EU/dl (0.2)
[2021-02-24 08:14] LABS: Bacteria,Urine Trace /lpf
== END ==
PROVIDERS: Visit Provider Nurse Practitioner Family
DX: R53.1 Weakness (principal); D72.829 Elevated white blood cell count, unspecified
CPT/HCPCS: 81001